=== PATIENT | male | born 1935 | race Caucasian/White ===

== ENCOUNTER 2018-03-05 12:35 | Outpatient (CLI) | payer MEDICARE, OTHER | END 2018-03-05 12:36 | disposition home or self-care (01) | LOC: ULT 12:35 | PROVIDERS: ATTEND Internal Medicine | DX: R07.9 Chest pain, unspecified (principal); I08.3 Combined rheumatic disorders of mitral, aortic and tricuspid valves | CPT/HCPCS: 93306 ==

== ENCOUNTER 2019-09-08 12:38 | Outpatient (CLI) | payer MEDICARE, OTHER | END 2019-09-08 12:39 | disposition home or self-care (01) | LOC: ULT 12:38 | PROVIDERS: ATTEND Internal Medicine | DX: R01.1 Cardiac murmur, unspecified (principal); R07.9 Chest pain, unspecified; I08.3 Combined rheumatic disorders of mitral, aortic and tricuspid valves | CPT/HCPCS: 93306 ==

== ENCOUNTER 2019-09-20 07:22 | Outpatient (CLI) | payer MEDICARE, OTHER ==
[2019-09-20] MEDS ORDERED: Regadenoson 0.4 MG/5 ML SYRINGE ONE (10:05)
--- NOTE | 2019-09-20 11:48 | NM ---
Radionucleotide stress and rest myocardial perfusion scan with CT attenuation correction and SPECT im aging Left ventricular wall motion evaluation and ejection fraction HISTORY: Chest pain. FINDINGS: Lexiscan protocol. There is heterogeneous uptake of radiotracer throughout the left ventric ular myocardium. No focal perfusion defect or reversibility. QGS analysis of gated SPECT images shows no focal wall motion abnormalities. Ejection fraction calcul ated at 63%. IMPRESSION : Normal exam. Normal LVEF.
== END 2019-09-20 07:23 | disposition home or self-care (01) ==
LOC: NM 07:22
PROVIDERS: ATTEND Internal Medicine
DX: R07.9 Chest pain, unspecified (principal); R01.1 Cardiac murmur, unspecified
CPT/HCPCS: 78452; 93017; A9500; J2785